=== PATIENT | male | born 1965 | race African-American/Black ===

== ENCOUNTER 2017-03-19 07:57 | Day surgery (SDC) | payer BC ==
--- NOTE | ~2017-03-19 | EGD ---
EGD REPORT [facility] [address] [address] NAME: ANGE CELESTIN : 69 STATUS : REG [facility]#: [id number] AGE: 51 ADM/REG DATE : 03/19/17 MR#: [id number] REPORT SERV DATE: 03/19/17 DICTATED BY: VIJAY LEE DATE: 03/19/17 REPORT STATUS : Draft [facility]ANS[facility]ED [facility]: [facility] DATE: 03/19/17 Pulmonology Patient Name: Ange Celestin Procedure Date: 03/19/2017 9:13 AM Date of : 1965 Attending MD: EDU LEE MD Procedure Date No Time: 03/19/2017 Procedure: Flexible rigid bronchoscopy Indications: Silicone stent removal Providers: EDU LEE MD Referring MD: JUAN HARDING MD Medicines: Lidocaine 2% 20 mL Complications: No immediate complications Procedure: Pre-Anesthesia Assessment: - A History and Physical has been performed. Patient meds and allergies have been reviewed. The risks and benefits of the procedure and the sedation options and risks were discussed with the patient. All questions were answered and informed consent was obtained. Patient identification and proposed procedure were verified prior to the procedure by the physician and the nurse in the pre-procedure area in the procedure room. Mental Status Examination: alert and oriented. Airway Examination: normal oropharyngeal airway. Respiratory Examination: clear to auscultation and poor air movement. CV Examination: normal and RRR, no murmurs, no S3 or S4. ASA Grade Assessment: IV - A patient with severe systemic disease that is a constant threat to life. After reviewing the risks and benefits, the patient was deemed in satisfactory condition to undergo the procedure. The anesthesia plan was to use general anesthesia. Immediately prior to administration of medications, the patient was re-assessed for adequacy to receive sedatives. The heart rate, respiratory rate, oxygen saturations, blood pressure, adequacy of pulmonary ventilation, and response to care were monitored throughout the procedure. The physical status of the patient was re-assessed after the procedure. After obtaining informed consent, the Bronchoscope was introduced through the mouth, via the endotracheal tube (the patient was intubated for the procedure) and advanced to the tracheobronchial tree. The procedure was accomplished without difficulty. The patient tolerated the procedure well. Findings: EGD REPORT [address] [address] NAME: ANGE CELESTIN : 69 STATUS : REG [facility] PAT#: [id number] AGE: 51 ADM/REG DATE : 03/19/17 MR#: [id number] REPORT SERV DATE: 03/19/17 DICTATED BY: VIJAY LEE DATE: 03/19/17 REPORT STATUS : Draft TRANSCRIBED BY: [employer] DATE: 03/19/17 The LMA is in good position. The visualized portion of the trachea is of normal caliber. The mariya is sharp. The tracheobronchial tree was examined to at least the first subsegmental level. Silicone stent visualized in the NICKOLAS and RBI. Patient was reintubated with the rigid bronchoscope in the usual atraumatic fashion and selectively advanced into the NICKOLAS. The silicone stent was grasped with the white handle forcep and removed through the rigid scope. Multiple endobronchial biopsies of the RBI necrotic tissue and sent for histopathology. Bronchoalveolar lavage was performed in the right upper lobe of the lung and sent for cell count, cytology, bacterial culture, viral smears \T\ culture, and fungal and AFB analysis. 60 mL of fluid were instilled. 20 mL were returned. The return was blood-tinged and cellular. The FIO2 was lowered to less than 40% and argon plasma coagulation therapy (0.8 L/min, 15 Lyons) was performed for destruction of tissue. Impression: Flexible and Rigid bronchoscopy: NICKOLAS/RBI silicone stent removed. RUL appears necrotic presumably from radiation therapy RUL BAL and endobronchial biopsies were performed. Recommendation: - Await test results. - Follow up with referring physician. - Follow up in the pulmonary clinic Attending Participation: I personally performed the entire procedure. EDU LEE MD 03/19/2017 10:54 AM This report has been signed electronically. Number of Addenda: 0 Note Initiated On: 03/19/2017 9:13 AM [address] [address]
--- NOTE | ~2017-03-19 | CN ---
Consultation Report [facility] [address] [place]. [address] NAME: ANGE CELESTIN : 69 STATUS : REG [facility]#: [id number] AGE: 51 ADM/REG DATE : 03/19/17 MR#: [id number] REPORT SERV DATE: 03/19/17 DICTATED BY: GWEN LEE DATE: 03/19/17 REPORT STATUS : Draft TRANSCRIBED BY: [employer] DATE: 03/19/17 CONSULTATION DATE OF CONSULTATION: Dear Dr. Kota Orozco and Dr. Araseli Huff: Thank you for requesting my opinion regarding evaluation and management of Mr. Ange Celestin' right mainstem non-small cell lung cancer and stent placement. HISTORY OF PRESENT ILLNESS: Mr. Celestin is an extremely pleasant 51-year-old male with a significant past medical history of COPD, tobacco abuse, and stage III lung cancer, status post chemo and radiation therapy, who presents for formal evaluation of stent removal. The patient's recent CT scan performed on 02/28/2017 demonstrates extensive consolidation in the right lung including the perihilar region and adjacent portions of the right upper and lower lobes. The appearances have improved, however, no longer total opacification or consolidation of the right upper lobe. The right upper lobe bronchus is no longer totally occluded. A stent is present in the bronchus intermedius, and there is stenosis of the right distal pulmonary artery. Subcentimeter subpleural left upper lobe pulmonary nodule is unchanged and is likely postinflammatory. Interval resolution of a small right-sided pleural effusion. No evidence of metastatic disease to the abdomen. The patient states that he has chronic shortness of breath, and he has been compliant with his bronchodilator therapy and tolerated the stent well. He has had no significant episodes of lower respiratory tract infections, and he denies any significant right-sided chest pain or hemoptysis. REVIEW OF SYSTEMS: A detailed 14-point review of systems was completed. Pertinent positives and negatives are as listed above. PAST MEDICAL HISTORY: 1. COPD. 2. Tobacco abuse. 3. Stage III lung cancer. 4. Status post chemo and radiation therapy. PAST SURGICAL HISTORY: Compound fracture of the metacarpal requiring pin placement. FAMILY HISTORY: Father with lung cancer. SOCIAL HISTORY: The patient has a 28 pack-year smoking history. He denies any significant alcohol or illicit drug abuse. ALLERGIES: NO KNOWN DRUG ALLERGIES. Consultation Report [place] [id number] [facility] [address] [place]. [address] NAME: ANGE CELESTIN : 69 STATUS : REG [facility] PAT#: [id number] AGE: 51 ADM/REG DATE : 03/19/17 MR#: [id number] REPORT SERV DATE: 03/19/17 DICTATED BY: GWEN LEE DATE: 03/19/17 REPORT STATUS : Draft TRANSCRIBED BY: CHRISTIANO DATE: 03/19/17 HOME MEDICATIONS: Reviewed and located in the paper chart. PHYSICAL EXAMINATION: VITAL SIGNS: Reviewed and located in the paper chart. GENERAL: No acute distress. Able to communicate in full paragraphs at a time. HEENT: Normocephalic and atraumatic. Pupils are equal, round, and reactive to light and accommodation. Posterior oropharynx is clear. NECK: No JVD. No LAD. Trachea midline. CARDIOVASCULAR: Regular rate and rhythm. S1 and S2 present. LUNGS: Diminished breath sounds bilaterally. ABDOMEN: Nontender, nondistended. Soft. Positive bowel sounds. EXTREMITIES: No clubbing, cyanosis, or edema. SKIN: No new rashes, lesions, or ulcers. PSYCHIATRIC: Alert and oriented x3. Appropriate mood and affect. Appropriate insight and judgment. NEUROLOGIC: 5/5 strength in upper and lower extremities. Cranial nerves II through XII intact. Gait not tested. DTRs not performed. ASSESSMENT AND PLAN: Mr. Ange Celestin is an extremely pleasant 51-year-old gentleman with a significant past medical history of stage III lung cancer, status post right mainstem and right bronchus intermedius, airway obstruction, status post stent placement and chemo and radiation therapy, who presents for formal evaluation of stent removal. The patient has undergone a successful treatment with chemo and radiation therapy, and CT scan of the chest performed on 02/28/2017 which has been personally reviewed by me has demonstrated a decrease in the tumor volume as well as opening of the right upper lobe bronchus and stent in good position. At this point, Mr. Celestin would benefit from stent removal. The patient is aware that flexible rigid bronchoscopy and stent removal is associated with potential life-threatening risks, including lung collapse, respiratory failure, and even . With a rigid bronchoscopy, additional risks include injury to the mouth, lips, teeth, gums, posterior oropharynx, airway tear and perforation, airway fire, and C-spine injury. RECOMMENDATIONS: Summary of my recommendations are as follows: 1. The patient agrees to proceed with flexible rigid bronchoscopy and stent removal. 2. The patient can discontinue mandatory bronchodilator therapy with albuterol and Mucomyst nebulization therapy and use it as p.r.n. only. 3. Follow up in our Pulmonary Clinic. 4. Follow up with doctors, Kota Orozco and Araseli Huff. Thank you for allowing me to participate in Mr. Ange Celestin' care. Consultation Report [facility] [address] [place]. [id number] NAME: ANGE CELESTIN : 69 STATUS : REG [facility]#: [id number] AGE: 51 ADM/REG DATE : 03/19/17 MR#: [id number] REPORT SERV DATE: 03/19/17 DICTATED BY: GWEN LEE DATE: 03/19/17 REPORT STATUS : Draft TRANSCRIBED BY: CHRISTIANO DATE: 03/19/17 KATHERINE/CHRISTIANO Gwen Lee M.D. / [id number] CC: Rachel Weeks M.D.
[~2017-03-19 07:57] MED LIST: *DENIES; NEUR300 PO; OXYCON10 PO
[2017-03-19 08:52] LABS: BASOPHILS 0.3 %; BASOPHILS ABSOLUTE 0.02 10/3/uL (0.0-0.16); EOSINOPHILS ABSOLUTE 0.19 10/3/uL (0.0-0.53); HEMATOCRIT 37.1 % (40.0-51.0); HEMOGLOBIN 12.5 g/dL (13.6-17.8); IMMATURE GRANULOCYTES 0.2 %; IMMATURE GRANULOCYTES ABSOLUTE 0.01 10/3/uL (0.0-0.11); MANUAL DIFF NO %; MEAN CORPUS HGB CONC 33.7 g/dL (32.0-36.0); MEAN CORPUSCULAR HEMOGLOB 31.6 pg (26.0-34.0); MEAN CORPUSCULAR VOLUME 93.9 fL (80-100); MONOCYTES 8.9 %; MONOCYTES ABSOLUTE 0.57 10/3/uL (0.21-1.20); NEUTROPHILS 62.6 %; PLATELET COUNT 369 10/3/uL (150-400); RBC DISTRIBUTION WIDTH 14.3 % (12.0-16.0); RED CELL COUNT 3.95 10/6/uL (4.7-6.1); WHITE BLOOD CELLS 6.4 10/3/uL (4.5-10.5)
[2017-03-19 08:59] LABS: PARTIAL THROMBO TIME 26.9 SEC (22.5-37.2); PROTIME (NOT ORD) 13.3 SEC (12.0-14.5)
[2017-03-19 09:02] LABS: CALCIUM, SERUM 9.5 MG/DL (8.5-10.4); CHLORIDE, SERUM 104 MMOL/L (96-112); CO2 (CARBON DIOXIDE) 25 MMOL/L (24-34); CREATININE 0.69 MG/DL (0.70-1.30); GFR AFRICAN AMERICAN 129 ML/MIN (>=60); GFR NON AFRICAN AMERICAN 111 ML/MIN (>=60); GLUCOSE, SERUM 89 MG/DL (60-99); POTASSIUM, SERUM 3.6 MMOL/L (3.5-5.3); SODIUM, SERUM 137 MMOL/L (135-148)
[2017-03-19 09:03] LABS: BUN (BLOOD UREA NITROGEN) 13 MG/DL (6-23)
[2017-03-19 12:45] LABS: BD FL SOURCE (NOT ORD) BAL
[2017-03-19 12:46] LABS: BF TOTAL CELL CT (NOT ORD 1209 /MM3; BODY FLUID RBC (NOT ORD) 43000 /MM3
[2017-03-19 13:35] LABS: BD FL LYMPH (NOT ORD) 3 %; BF BASO (NOT OF) 0 %; BF LARGE MONONUCLEAR 1 %; BODY FLUID EOS (NOT ORD) 0 %; BODY FLUID SEG (NOT ORD) 96 %
== END 2017-03-19 23:59 | disposition home or self-care (01) ==
LOC: DMU 07:57
PROVIDERS: Anesthesiology; Internal Medicine
PROC: 0BC38ZZ Extirpation of Matter from Right Main Bronchus, Via Natural or Artificial Opening Endoscopic (ICD-10-PCS; principal; 2017-03-19 09:30)
PROC: 0B9C8ZX Drainage of Right Upper Lung Lobe, Via Natural or Artificial Opening Endoscopic, Diagnostic (ICD-10-PCS; 2017-03-19 09:30)
PROC: 0BB38ZX Excision of Right Main Bronchus, Via Natural or Artificial Opening Endoscopic, Diagnostic (ICD-10-PCS; 2017-03-19 09:30)
DX: Z46.89 Encounter for fitting and adjustment of other specified devices (principal); I48.91 Unspecified atrial fibrillation; F17.210 Nicotine dependence, cigarettes, uncomplicated; Z85.118 Personal history of other malignant neoplasm of bronchus and lung; Z92.21 Personal history of antineoplastic chemotherapy; Z79.899 Other long term (current) drug therapy; Z79.891 Long term (current) use of opiate analgesic
CPT/HCPCS: 71010; 80048; 85025; 85610; 85730; 87015; 87070; 87077; 87102; 87116; 87186; 87205; 88112; 88305; 89051; 93005; A9270-GY; J0330; J1170; J3010